=== PATIENT | female | born 1960 | race Caucasian/White ===

== ENCOUNTER 2018-02-05 08:39 | Inpatient (IN) | payer BC, MEDICARE ==
[~2018-02-05] VITALS: Ht 167.6 cm; Wt 68.0 kg
[2018-02-05] MEDS ORDERED: MORPHINE SULFATE 4 MG/ML CPJ (NOT FOR IM USE) IV STA (10:23)
[2018-02-05 11:08] LABS: BASOPHILS % 0.7 % (0.0-2.0); EOSINOPHILS % 1.7 % (0.0-5.0); HEMATOCRIT. 37.2 % (36.0-48.0); HEMOGLOBIN. 12.8 g/dL (12.0-16.0); LYMPHOCYTES % 22.7 % (20.0-50.0); MEAN CORPUSCULAR VOLUME 92.9 fL (81.0-99.0); MEAN PLATELET VOLUME 8.7 fl (7.4-10.4); MONOCYTES % 7.4 % (2.0-8.0); NEUTROPHILS % 67.5 % (40.0-76.0); PLATELET 238 x1000/uL (130-400); RED CELL DISTRIBUTION WIDTH 13.1 % (11.6-14.6)
[2018-02-05 11:26] LABS: D-DIMER 0.53 mg/L FEU (<0.50); PROTHROMBIN TIME 10.3 sec (9.1-11.1)
[2018-02-05 11:56] LABS: CHLORIDE 106 mEq/L (98-107)
[2018-02-05] MEDS ORDERED: ASPIRIN 325MG EC TABLET PO ONE (13:45)
[2018-02-05] MEDS ORDERED: GUAIFENESIN 200MG/10ML SUGAR FREE UDC PO PRN (14:00)
[2018-02-05] MEDS ORDERED: DIPHENHYDRAMINE 50MG/ML VIAL IV PRN (14:00)
[2018-02-05] MEDS ORDERED: NA PHOS,M-B/NA PHOS,DI-BA ENEMA 118ML PR PRN (14:00)
[2018-02-05] MEDS ORDERED: IPRATROPIUM/ALBUTEROL 0.5-3(2.5)MG/3ML NEB INH PRN (14:00)
[2018-02-05] MEDS ORDERED: DOCUSATE SODIUM 100MG CAPSULE PO PRN (14:00)
[2018-02-05] MEDS ORDERED: HYDROCODONE/ACETAMINOPHEN 10/325MG TABLET PO PRN (14:00)
[2018-02-05] MEDS ORDERED: ACETAMINOPHEN 325MG TABLET PO PRN (14:00)
[2018-02-05] MEDS ORDERED: CLONIDINE 0.1MG TABLET PO PRN (14:00)
[2018-02-05] MEDS ORDERED: ONDANSETRON HCL 4MG/2ML VIAL IV PRN (14:00)
[2018-02-05] MEDS ORDERED: MAGNESIUM/ALUMINUM HYDROXIDE/SIMETHICONE 30ML UDC PO PRN (14:00)
[2018-02-05] MEDS ORDERED: IOHEXOL-350 100 ML BOTTLE ONE (14:47)
[2018-02-05] MEDS ORDERED: MORPHINE SULFATE 4 MG/ML CPJ (NOT FOR IM USE) IV PRN (17:15)
[2018-02-05] MEDS ORDERED: [UNRECOGNIZED DRUG - OTHER] (17:32)
[2018-02-05] MEDS ORDERED: DEXT10TA4 PO (17:32)
[2018-02-05] MEDS ORDERED: PROVENTIL (17:32)
[2018-02-05] MEDS ORDERED: TRAZODONE (17:32)
[2018-02-05] MEDS: LORAZEPAM 2MG/ML CPJ IV PRN ×2 (17:56→22:20)
[2018-02-05] MEDS ORDERED: ENOXAPARIN 40MG/0.4ML SYR SUBCUT SCH (18:00)
[2018-02-05 20:00] VITALS: BP 102/54
[2018-02-05 20:09] LABS: CHLORIDE 104 mEq/L (98-107)
[2018-02-06 04:00] VITALS: BP 110/70
[2018-02-06 07:23] LABS: CHLORIDE 105 mEq/L (98-107)
[2018-02-06 07:35] LABS: BASOPHILS % 0.6 % (0.0-2.0); EOSINOPHILS % 2.7 % (0.0-5.0); HEMATOCRIT. 36.2 % (36.0-48.0); HEMOGLOBIN. 12.3 g/dL (12.0-16.0); LDL CHOLESTEROL 78 mg/dL (5-100); LYMPHOCYTES % 32.4 % (20.0-50.0); MEAN CORPUSCULAR HEMOGLOBIN 32.2 pg (28.0-32.0); MEAN CORPUSCULAR VOLUME 94.6 fL (81.0-99.0); MEAN PLATELET VOLUME 8.5 fl (7.4-10.4); MONOCYTES % 10.8 % (2.0-8.0); NEUTROPHILS % 53.5 % (40.0-76.0); PLATELET 238 x1000/uL (130-400); RED BLOOD CELL COUNT 3.83 mill/uL (4.2-5.4); RED CELL DISTRIBUTION WIDTH 13.3 % (11.6-14.6)
[2018-02-06 07:36] LABS: HDL CHOLESTEROL 65 mg/dL (40-59)
[2018-02-06 08:00] VITALS: BP_SYST 105; BP_SYST 114; BP_DIAS 67; BP_DIAS 75
[2018-02-06] MEDS ORDERED: ASPIRIN 81MG EC TABLET PO SCH (09:00)
[2018-02-06] MEDS ORDERED: ACET-2178 MT (10:59)
[2018-02-06 11:04] VITALS: BP 105/67
== END 2018-02-06 13:28 | disposition home or self-care (01) | DRG 313 ==
LOC: ER 08:47 → 5WST 13:50 → ENRESERV 14:20 → 5WST 02-06 00:03
PROVIDERS: ADMIT Internal Medicine; ATTEND Internal Medicine
DX: R07.9 Chest pain, unspecified (principal); F90.9 Attention-deficit hyperactivity disorder, unspecified type; G47.00 Insomnia, unspecified
CPT/HCPCS: 36415; 71045; 71275; 80048; 80053; 80061; 83880; 84484; 85025; 85379; 85610; 93005; 96372; 96374; 96375; 99285; J1650; J2060; J2270; Q9967